=== PATIENT | male | born 1955 | race Caucasian/White ===

== ENCOUNTER 2017-06-17 11:29 | Emergency (ER) | payer MEDICAID ==
[~2017-06-17] VITALS: Ht 172.7 cm; Wt 74.8 kg
[~2017-06-17 11:29] MED LIST: OMEP-130 PO; RANI300T7 PO; RIFA550T5 PO; TRAM50TA92 PO
[2017-06-17 11:36] VITALS: BP_SYST 151
[2017-06-17 12:26] LABS: BASOPHILS # (AUTO) 0.1 K/uL (0.0-0.2); BASOPHILS % (AUTO) 0.6 % (0.0-2.0); EOSINOPHILS # (AUTO) 0.1 K/uL (0.0-0.4); EOSINOPHILS % (AUTO) 1.3 % (0.0-4.0); HEMATOCRIT 40.2 % (36-54); HEMOGLOBIN 13.4 g/dL (14.0-18.0); LYMPHOCYTES # (AUTO) 3.2 K/uL (1.0-5.5); LYMPHOCYTES % (AUTO) 29.4 % (20.5-51.5); MEAN CORPUSCULAR HEMOGLOBIN 34 pg (27-31); MEAN CORPUSCULAR HGB CONC 33 % (32-36); MEAN CORPUSCULAR VOLUME 101 fL (79.0-98.0); MONOCYTES # (AUTO) 1.1 K/uL (0.0-1.0); MONOCYTES % (AUTO) 9.8 % (1.7-9.3); NEUTROPHILS # (AUTO) 6.2 K/uL (1.8-7.7); NEUTROPHILS % (AUTO) 58.9 % (40.0-70.0); PLATELET COUNT (AUTO) 241 K/uL (130-430); RED BLOOD CELL COUNT(AUTO) 3.98 MIL/uL (4.2-6.2); RED CELL DISTRIBUTION WIDTH 14.9 % (9.0-15.0); WHITE BLOOD COUNT (AUTO) 10.8 K/uL (4.8-10.8)
[2017-06-17 12:37] LABS: CALCIUM 10.2 mg/dL (8.4-11.0); CREATININE 0.76 mg/dL (0.55-1.30)
[2017-06-17 12:42] LABS: ALBUMIN 3.5 g/dL (3.4-4.8); TOTAL BILIRUBIN 1.6 mg/dL (0.0-1.0)
[2017-06-17 15:00] VITALS: BP_SYST 145
== END 2017-06-17 15:00 | disposition home or self-care (01) ==
LOC: SED 11:29
DX: R18.8 Other ascites (principal); E87.6 Hypokalemia; K74.60 Unspecified cirrhosis of liver; I10 Essential (primary) hypertension; Z79.899 Other long term (current) drug therapy
CPT/HCPCS: 36415; 80053; 82140-TC; 83690-TC; 85025; 99285

== ENCOUNTER 2017-09-14 04:41 | Inpatient (IN) | payer MEDICAID ==
[~2017-09-14] VITALS: Ht 172.7 cm; Wt 64.4 kg
[2017-09-14] VITALS (8 sets, daily range): BP systolic 142–170
[~2017-09-14 04:41] MED LIST changes: +CEPH-568 PO; +FURO-150 PO; +LACT10SO66 PO; -OMEP-130 PO; +PRO40 PO; -RANI300T7 PO; -RIFA550T5 PO; +SPIR25TA PO; -TRAM50TA92 PO
[2017-09-14] MEDS ORDERED: NACL 0.9% 1,000 ML IV ONE (05:14)
[2017-09-14] MEDS ORDERED: MORPHINE 2 MG/ML INJ. SYRINGE IVP ONE (05:15)
[2017-09-14] MEDS ORDERED: ONDANSETRON HCL 4 MG/2 ML VIAL IVP ONE (05:15)
[2017-09-14 06:19] LABS: BILIRUBIN,URINE NEGATIVE (NEGATIVE); BLOOD, URINE NEGATIVE (NEGATIVE); CLARITY/URINE CLEAR (CLEAR); COLOR,URINE YELLOW (YELLOW); GLUCOSE,URINE NEGATIVE (NEGATIVE); KETONES,URINE NEGATIVE (NEGATIVE); LEUKOCYTE ESTERASE ,URINE NEGATIVE (NEGATIVE); NITRITE, URINE NEGATIVE (NEGATIVE); PROTEIN URINE NEGATIVE (NEGATIVE); UROBILINOGEN,URINE 0.2 (0.2-1.0)
[2017-09-14] MEDS ORDERED: [UNRECOGNIZED DRUG - CODE] PO (06:28)
[2017-09-14 06:34] LABS: HEMATOCRIT 44.6 % (36-54); HEMOGLOBIN 14.9 g/dL (14.0-18.0); MEAN CORPUSCULAR HEMOGLOBIN 33 pg (27-31); MEAN CORPUSCULAR HGB CONC 33 % (32-36); MEAN CORPUSCULAR VOLUME 99 fL (79.0-98.0); PLATELET COUNT (AUTO) 174 K/uL (130-430); RED BLOOD CELL COUNT(AUTO) 4.52 MIL/uL (4.2-6.2); WHITE BLOOD COUNT (AUTO) 14.8 K/uL (4.8-10.8)
[2017-09-14 06:44] LABS: INR 1.1 (0.80-1.20); PROTHROMBIN TIME 11.6 SECS (9.5-12.5)
[2017-09-14 06:45] LABS: CALCIUM 9.4 mg/dL (8.4-11.0); CREATININE 0.97 mg/dL (0.55-1.30)
[2017-09-14 06:47] LABS: POTASSIUM 3.9 mmol/L (3.5-5.1)
[2017-09-14 06:48] LABS: ALBUMIN 4.1 g/dL (3.4-4.8); TOTAL BILIRUBIN 2.1 mg/dL (0.0-1.0)
[2017-09-14 06:53] LABS: BAND % (MANUAL) 3 % (0-6); BASOPHILS % (MANUAL) 0 % (0-2); EOSINOPHILS % (MANUAL) 1 % (0-7); LYMPHOCYTES % (MANUAL) 32 % (20-46); MONOCYTES % (MANUAL) 9 % (0-11)
[2017-09-14] MEDS ORDERED: MORPHINE 2 MG/ML INJ. SYRINGE IVP PRN (07:45)
[2017-09-14] MEDS: CEFAZOLIN 1 GM IVPB PREMIX 50 ML IV SCH ×2 (13:52→23:05)
[2017-09-14] MEDS ORDERED: LR 1,000 ML IV.SOLN IV ONE (20:45)
[2017-09-14] MEDS ORDERED: BUPIVACAINE /PF 0.25% 30 ML VIAL INJ ONE (20:45)
[2017-09-14] MEDS ORDERED: BUPIVACAINE /PF 0.75% 10 ML VIAL INJ ONE (20:45)
[2017-09-14] MEDS ORDERED: MIDAZOLAM HCL 5 MG/5 ML VIAL IVP ONE (20:45)
[2017-09-14] MEDS ORDERED: CEFAZOLIN 2 GM IVPB PREMIX 50 ML IV ONE (20:45)
[2017-09-14] MEDS ORDERED: EPINEPHrine 1 MG/ML AMP IV ONE (20:45)
[2017-09-14] MEDS ORDERED: POLYMYXIN 500,000/BACIT.10,000 UNITS in NS IRR 1 L IR ONE (21:06)
[2017-09-14] MEDS ORDERED: fentaNYL CITRATE/PF 100 MCG/2 ML AMP IVP PRN ×2 (21:45)
[2017-09-14] MEDS ORDERED: ONDANSETRON HCL 4 MG/2 ML VIAL IVP PRN (21:45)
[2017-09-14] MEDS: HYDROmorphone 1 MG INJ. 1 MG/ML AMPUL IVP PRN (23:50)
[2017-09-15] VITALS (7 sets, daily range): BP systolic 135–161
[2017-09-15] MEDS: MORPHINE 4 MG/ML INJ. SYRINGE IVP PRN ×2 (02:17→08:51)
[2017-09-15] MEDS: HYDROmorphone 1 MG INJ. 1 MG/ML AMPUL IVP PRN ×3 (04:33→16:37)
[2017-09-15] MEDS: CEFAZOLIN 1 GM IVPB PREMIX 50 ML IV SCH ×2 (06:03→15:32)
== END 2017-09-15 18:27 | disposition home or self-care (01) | DRG 228 ==
LOC: SED 04:41 → SMU 07:34
PROVIDERS: ADMIT Family Medicine; ATTEND Family Medicine
PROC: 0YU60JZ Supplement Left Inguinal Region with Synthetic Substitute, Open Approach (ICD-10-PCS; principal; 2017-09-14 18:00)
DX: K40.30 Unilateral inguinal hernia, with obstruction, without gangrene, not specified as recurrent (principal); E72.20 Disorder of urea cycle metabolism, unspecified; I10 Essential (primary) hypertension; K74.60 Unspecified cirrhosis of liver; D72.829 Elevated white blood cell count, unspecified; G40.909 Epilepsy, unspecified, not intractable, without status epilepticus; K21.9 Gastro-esophageal reflux disease without esophagitis; Z79.899 Other long term (current) drug therapy
CPT/HCPCS: 36415; 71045; 74021; 80053; 81003; 82140-TC; 83690-TC; 85007; 85027; 85610-TC; 85730-TC; 86886; 86900; 86901; 87081; 93005; 94010; 94760; 96361; 96374; 96375; 99285; C1781; J0171; J0690; J1170; J2250; J2270; J2405; J3490; J7030; J7120

== ENCOUNTER 2018-02-11 07:55 | Outpatient (CLI) | payer OTHER ==
[~2018-02-11 07:55] MED LIST changes: -CEPH-568 PO; -FURO-150 PO; +RIFA200T10 PO
== END 2018-02-11 18:49 | disposition home or self-care (01) ==
LOC: SUS 07:55
PROVIDERS: ATTEND Internal Medicine Gastroenterology
DX: K74.60 Unspecified cirrhosis of liver (principal)
CPT/HCPCS: 76700-TC